=== PATIENT | female | born 1940 | race Caucasian/White ===

== ENCOUNTER 2018-10-03 19:25 | Inpatient (IN) | payer MEDICARE, MEDICAID ==
[~2018-10-03] VITALS: Ht 165.1 cm; Wt 87.7 kg
--- NOTE | 2018-10-03 19:33 | NUR ---
THIS IS A 78 YEAR OLD FEMALE WHO C/O OF INCREASE LOOSE STOOL AND REPORTED HIGH FEVER AT HOME, PT BIB BY AMBULANCE, PT RECEIVED 1000CC NS IV. PT PACED AT 60, CONTINOUS SPO02 96% ON 4LNC.
--- NOTE | 2018-10-03 19:39 | NUR ---
DR. BLAS IN ROOM
--- NOTE | 2018-10-03 19:41 | NUR ---
PT STATE SHE HAS HAD LOOSE STOOLS IN THE PAST 3 DAYS
[2018-10-03] MEDS ORDERED: SODIUM CHLORIDE 0.9% 1,000 ML IV ONE ×2 (19:45→22:05)
[2018-10-03] MEDS ORDERED: SODIUM CHLORIDE FLUSH 10ML SYR IVF ONE (20:00)
--- NOTE | 2018-10-03 20:14 | NUR ---
PT RESTING CALMLY, MONITORS IN PLACE, IV FLUIDS INFUSING, CALL LIGHT WITHIN REACH. PT AWARE OF NEED FOR URINE SAMPLE, UNABLE TO VOID AT THIS TIME
--- NOTE | 2018-10-03 20:28 | NUR ---
URINE SAMPLE TAKEN TO LAB
[2018-10-03 20:33] LABS: BASOPHILS # (AUTO) 0.01 x10^3/uL (0-0.1); BASOPHILS % (AUTO) 0 % (0-1); EOSINOPHILS % (AUTO) 2 % (1-7); LYMPHOCYTES # (AUTO) 1.11 x10^3/uL (1-3.4); LYMPHOCYTES % (AUTO) 17 % (22-44); MD NO; MEAN CORPUSCULAR HEMOGLOBIN 29.2 pg (27.0-34.8); MEAN CORPUSCULAR HGB CONC 33.2 g/dL (32.4-35.8); MEAN CORPUSCULAR VOLUME 87.8 fL (80-100); MEAN PLATELET VOLUME 8.9 fL (7.4-10.4); MONOCYTES # (AUTO) 0.64 x10^3/uL (0.2-0.8); MONOCYTES % (AUTO) 10 % (2-9); NEUTROPHILS % (AUTO) 72 % (42-75); PLATELET COUNT 177 x10^3/uL (130-400); RED BLOOD COUNT 3.39 x10^6/uL (3.82-5.3); RED CELL DISTRIBUTION WIDTH 17.2 % (9.6-15.2)
[2018-10-03 20:40] LABS: ALANINE AMINOTRANSFERASE 16 U/L (12-78); ALBUMIN 2.8 g/dL (3.4-5.0); ANION GAP 9 mmol/L (5-15); CALCIUM 8.9 mg/dL (8.5-10.1); CHLORIDE 104 mmol/L (98-107); CREATININE 1.82 mg/dL (0.55-1.02)
[2018-10-03 20:45] LABS: ALKALINE PHOSPHATASE 74 U/L (45-117); BILIRUBIN,TOTAL 0.7 mg/dL (0.2-1.0); T4 (THYROXINE) 7.5 mcg/dL (4.8-13.9); TOTAL PROTEIN 6.2 g/dL (6.4-8.2); TROPONIN I < 0.015 ng/mL (0.000-0.045)
[2018-10-03 20:51] LABS: THYROID STIMULATING HORMONE 0.563 mIU/L (0.358-3.740)
[2018-10-03 20:56] LABS: CULTURE INDICATED? YES; MICROSCOPIC INDICATED
--- NOTE | 2018-10-03 21:28 | NUR ---
PT RESTING CALMLY, NAD, IV FLUIDS INFUSING, CALL LIGHT WITHIN REACH
[2018-10-03] MEDS ORDERED: CYANOCOBALAMIN (21:36)
[2018-10-03] MEDS ORDERED: GABA-827 PO (21:36)
[2018-10-03] MEDS ORDERED: LISI5TAB7 PO (21:36)
[2018-10-03] MEDS ORDERED: METF500T17 PO (21:36)
[2018-10-03] MEDS ORDERED: HYDR-3245 PO (21:36)
[2018-10-03] MEDS ORDERED: CARV6.2512 PO (21:36)
[2018-10-03] MEDS ORDERED: SPIR25TA5 PO (21:36)
[2018-10-03] MEDS ORDERED: ONDA4TAB13 SL (21:36)
[2018-10-03] MEDS ORDERED: CEFTRIAXONE PMX 1GM/50ML 50 ML ONE (21:56)
[2018-10-03] MEDS ORDERED: CEFTRIAXONE PMX 1GM/50ML 50 ML IV ONE (22:00)
[2018-10-03] MEDS ORDERED: ATOR40TA78 PO (22:07)
[2018-10-03] MEDS ORDERED: ALBU18HF INH (22:07)
[2018-10-03] MEDS ORDERED: ACYC-57 PO (22:07)
[2018-10-03] MEDS ORDERED: THIA50TA4 PO (22:07)
[2018-10-03] MEDS ORDERED: FURO20TA3 PO (22:07)
[2018-10-03] MEDS ORDERED: DEXA1.5T28 PO (22:07)
[2018-10-03] MEDS ORDERED: LENA10CA PO (22:07)
[2018-10-03] MEDS ORDERED: DONE10TA7 PO (22:12)
[2018-10-03] MEDS ORDERED: ESCI20TA PO (22:12)
[2018-10-03] MEDS ORDERED: BUDE10.2 PO (22:12)
[2018-10-03] MEDS ORDERED: VITA100D6 PO (22:12)
[2018-10-03] MEDS ORDERED: IPRA4AER NEB (22:12)
[2018-10-03] MEDS ORDERED: IRON1TAB60 PO (22:12)
[2018-10-03] MEDS ORDERED: MEMA10TA PO (22:12)
[2018-10-03] MEDS ORDERED: RIVA1TAB PO (22:12)
[2018-10-03] MEDS ORDERED: SODIUM CHLORIDE FLUSH 10ML SYR IVF PRN (22:30)
[2018-10-03] MEDS ORDERED: RIVAROXABAN 20 MG PO SCH (23:00)
--- NOTE | 2018-10-03 23:08 | NUR ---
pt resting calmly, monitors in place, iv fluids infusing, call light within reach. awaiting room for admit
--- NOTE | 2018-10-04 00:23 | NUR ---
BREAK RN: PT RESTING WITH NO NEEDS AT THIS TIME. FLUIDS RUNNING. CALL LIGHT IN REACH
[2018-10-04] MEDS: SODIUM CHLORIDE 0.9% 1,000 ML IV SCH ×2 (01:55→12:40)
[2018-10-04] MEDS: XARELTO MC SCH ×3 (01:56→17:13)
[2018-10-04 02:19] VITALS: BP 111/71
[2018-10-04 02:21] VITALS: BP 111/71
[2018-10-04 05:51] LABS: BASOPHILS # (AUTO) 0.02 x10^3/uL (0-0.1); BASOPHILS % (AUTO) 0 % (0-1); EOSINOPHILS # (AUTO) 0.15 x10^3/uL (0-0.4); EOSINOPHILS % (AUTO) 2 % (1-7); LYMPHOCYTES # (AUTO) 1.49 x10^3/uL (1-3.4); LYMPHOCYTES % (AUTO) 24 % (22-44); MD NO; MEAN CORPUSCULAR HEMOGLOBIN 29.2 pg (27.0-34.8); MEAN CORPUSCULAR HGB CONC 33.1 g/dL (32.4-35.8); MEAN CORPUSCULAR VOLUME 88.1 fL (80-100); MEAN PLATELET VOLUME 9.5 fL (7.4-10.4); MONOCYTES # (AUTO) 0.65 x10^3/uL (0.2-0.8); MONOCYTES % (AUTO) 10 % (2-9); NEUTROPHILS # (AUTO) 3.91 x10^3/uL (1.8-6.8); NEUTROPHILS % (AUTO) 63 % (42-75); PLATELET COUNT 170 x10^3/uL (130-400); RED CELL DISTRIBUTION WIDTH 16.7 % (9.6-15.2)
[2018-10-04 05:55] LABS: ANION GAP 7 mmol/L (5-15); CALCIUM 8.7 mg/dL (8.5-10.1); CHLORIDE 106 mmol/L (98-107); CREATININE 0.86 mg/dL (0.55-1.02)
[2018-10-04 06:05] LABS: THYROID STIMULATING HORMONE 0.391 mIU/L (0.358-3.740)
[2018-10-04] MEDS: INSULIN LISPRO 100 UNITS/ML, PEN SQ-INSULIN SCH ×4 (07:00→20:38)
[2018-10-04 08:20] VITALS: BP 111/51
[2018-10-04] MEDS: DEXAMETHASONE 4 MG TABLET PO SCH (08:27)
[2018-10-04] MEDS: GABAPENTIN 100 MG CAPSULE PO SCH ×3 (08:28→20:39)
[2018-10-04] MEDS: MEMANTINE 10MG TABLET PO SCH ×2 (08:28→20:39)
[2018-10-04] MEDS ORDERED: RIVA20TA PO (08:32)
[2018-10-04] MEDS: CEFTRIAXONE PMX 1GM/50ML 50 ML IV SCH (10:29)
[2018-10-04 15:49] VITALS: BP 118/62
[2018-10-04 19:03] VITALS: BP 125/70
[2018-10-04] MEDS: ATORVASTATIN 80 MG TABLET PO SCH (20:39)
[2018-10-04] MEDS: DONEPEZIL 10 MG TABLET PO SCH (20:39)
[2018-10-05 01:19] VITALS: BP 113/72
[2018-10-05] MEDS: SODIUM CHLORIDE 0.9% 1,000 ML IV SCH (05:11)
[2018-10-05 06:30] LABS: ALBUMIN 2.8 g/dL (3.4-5.0); ANION GAP 8 mmol/L (5-15); CALCIUM 9.5 mg/dL (8.5-10.1); CHLORIDE 110 mmol/L (98-107); CREATININE 0.58 mg/dL (0.55-1.02)
[2018-10-05 06:54] LABS: BASOPHILS # (AUTO) 0.01 x10^3/uL (0-0.1); BASOPHILS % (AUTO) 0 % (0-1); EOSINOPHILS # (AUTO) 0.01 x10^3/uL (0-0.4); EOSINOPHILS % (AUTO) 0 % (1-7); LYMPHOCYTES # (AUTO) 0.84 x10^3/uL (1-3.4); LYMPHOCYTES % (AUTO) 17 % (22-44); MD NO; MEAN CORPUSCULAR HEMOGLOBIN 28.7 pg (27.0-34.8); MEAN CORPUSCULAR HGB CONC 32.7 g/dL (32.4-35.8); MEAN CORPUSCULAR VOLUME 87.8 fL (80-100); MEAN PLATELET VOLUME 9.2 fL (7.4-10.4); MONOCYTES # (AUTO) 0.49 x10^3/uL (0.2-0.8); MONOCYTES % (AUTO) 10 % (2-9); NEUTROPHILS # (AUTO) 3.48 x10^3/uL (1.8-6.8); NEUTROPHILS % (AUTO) 72 % (42-75); PLATELET COUNT 207 x10^3/uL (130-400); RED BLOOD COUNT 3.39 x10^6/uL (3.82-5.3); RED CELL DISTRIBUTION WIDTH 17.1 % (9.6-15.2)
[2018-10-05] MEDS: INSULIN LISPRO 100 UNITS/ML, PEN SQ-INSULIN SCH ×4 (07:00→21:51)
[2018-10-05 07:41] VITALS: BP 173/66
[2018-10-05 08:02] VITALS: BP 163/59
[2018-10-05] MEDS: MEMANTINE 10MG TABLET PO SCH ×2 (09:02→21:51)
[2018-10-05] MEDS: CEFTRIAXONE PMX 1GM/50ML 50 ML IV SCH (09:02)
[2018-10-05] MEDS: DEXAMETHASONE 4 MG TABLET PO SCH (09:02)
[2018-10-05] MEDS: GABAPENTIN 100 MG CAPSULE PO SCH ×3 (09:03→21:51)
[2018-10-05] MEDS: SPIRONOLACTONE 25 MG TABLET PO SCH (09:03)
[2018-10-05] MEDS: LISINOPRIL 5 MG TABLET PO SCH (09:03)
[2018-10-05 13:05] VITALS: BP 143/59
[2018-10-05] MEDS: CARVEDILOL 6.25 MG TABLET PO SCH (16:57)
[2018-10-05 20:32] VITALS: BP 158/70
[2018-10-05] MEDS ORDERED: RIVAROXABAN 20 MG TABLET PO SCH (20:48)
[2018-10-05] MEDS: ATORVASTATIN 80 MG TABLET PO SCH (21:51)
[2018-10-05] MEDS: DONEPEZIL 10 MG TABLET PO SCH (21:51)
[2018-10-06 03:01] VITALS: BP 159/65
[2018-10-06] MEDS: CARVEDILOL 6.25 MG TABLET PO SCH (05:40)
[2018-10-06] MEDS: INSULIN LISPRO 100 UNITS/ML, PEN SQ-INSULIN SCH ×2 (07:00→11:00)
[2018-10-06 07:56] VITALS: BP 165/76
[2018-10-06] MEDS: MEMANTINE 10MG TABLET PO SCH (08:21)
[2018-10-06] MEDS: GABAPENTIN 100 MG CAPSULE PO SCH (08:21)
[2018-10-06] MEDS: LISINOPRIL 5 MG TABLET PO SCH (08:21)
[2018-10-06] MEDS: SPIRONOLACTONE 25 MG TABLET PO SCH (08:21)
[2018-10-06] MEDS: DEXAMETHASONE 4 MG TABLET PO SCH (08:21)
[2018-10-06] MEDS: CEFTRIAXONE PMX 1GM/50ML 50 ML IV SCH (09:30)
[2018-10-06] MEDS ORDERED: CEFP200T PO (10:18)
[2018-10-06] MEDS ORDERED: LISINOPRIL 5 MG TABLET PO ONE (10:18)
[2018-10-06] MEDS ORDERED: LISI-167 PO (10:21)
[2018-10-06 13:19] VITALS: BP 146/71
== END 2018-10-06 14:05 | disposition home or self-care (01) | DRG 682 ==
LOC: ED 22:15 → EDIP 23:33 → INTOOBSV 23:33 → 4WST 10-04 01:36 → OBSVTOIN 10-05 16:01 → DCLOUNGE 10-06 13:49
PROVIDERS: ADMIT Internal Medicine; ATTEND Internal Medicine
DX: N17.0 Acute kidney failure with tubular necrosis (principal); J96.00 Acute respiratory failure, unspecified whether with hypoxia or hypercapnia; C85.90 Non-Hodgkin lymphoma, unspecified, unspecified site; E86.0 Dehydration; E86.9 Volume depletion, unspecified; I95.2 Hypotension due to drugs; D63.8 Anemia in other chronic diseases classified elsewhere; E11.9 Type 2 diabetes mellitus without complications; F03.90 Unspecified dementia, unspecified severity, without behavioral disturbance, psychotic disturbance, mood disturbance, and anxiety; T50.905A Adverse effect of unspecified drugs, medicaments and biological substances, initial encounter; I10 Essential (primary) hypertension; N30.90 Cystitis, unspecified without hematuria; Z79.899 Other long term (current) drug therapy; Z90.710 Acquired absence of both cervix and uterus; Y92.89 Other specified places as the place of occurrence of the external cause; Z90.49 Acquired absence of other specified parts of digestive tract; Z79.01 Long term (current) use of anticoagulants
CPT/HCPCS: 36415; 71045; 80048; 80053; 81001; 82040; 82533; 82962; 83735; 84436; 84443; 84484; 85025; 87040; 87077; 87086; 87186; 93005; G0378; J0696; J1815; J7030